=== PATIENT | female | born 1950 | race Caucasian/White ===

== ENCOUNTER 2019-11-12 11:00 | Outpatient (CLI) | payer OTHER | END 2019-11-12 11:10 | disposition home or self-care (01) | LOC: SONOGRAMA 11:00 | DX: E04.1 Nontoxic single thyroid nodule (principal) ==

== ENCOUNTER 2022-05-14 08:40 | Outpatient (CLI) | payer OTHER | END 2022-05-14 08:51 | disposition home or self-care (01) | LOC: TOM 08:40 | PROVIDERS: ATTEND Internal Medicine Gastroenterology | DX: K56.50 Intestinal adhesions [bands], unspecified as to partial versus complete obstruction (principal); R10.30 Lower abdominal pain, unspecified ==